=== PATIENT | female | born 1955 | race Caucasian/White ===

== ENCOUNTER 2019-07-03 14:13 | Outpatient (CLI) | payer BC, SELFPAY ==
--- NOTE | 2019-07-03 15:16 | XR_ITS ---
WS: [id number] HIP WITH PELVIS LEFT TECHNIQUE: 3 views of the left hip with pelvis CLINICAL INFORMATION: HIP PAIN,LEFT COMPARISON: None. FINDINGS: Mild degenerative arthritis left hip with joint space narrowing. Normal femoral neck. Normal pubic ra mi. No acute fractures. XR/XR hip LT 2-3V wo/w pel* [id number] IMPRESSION: Mild degenerative arthritis left hip. No acute fractures.
== END 2019-07-03 14:14 | disposition home or self-care (01) ==
PROVIDERS: PCP Family Medicine; Visit Provider Family Medicine
DX: M16.12 Unilateral primary osteoarthritis, left hip (principal); M25.552 Pain in left hip
CPT/HCPCS: 73502

== ENCOUNTER 2021-05-23 13:34 | Outpatient (CLI) | payer BC, SELFPAY ==
--- NOTE | 2021-05-23 14:02 | XR_ITS ---
WS: [id number] ABDOMEN KUB CLINICAL INFORMATION: Left lower quadrant abdominal pain COMPARISON: None. FINDINGS: Scattered air in normal caliber small and large bowel. No air-fluid levels. No evidence of high-grade obstruction. Lumbar curve convex left. Moderate spondylitic changes. 5 nonrib-bearing lumbar vertebral bodies. Nor mal pubic rami. XR/XR KUB [id number] Impression: Normal. No free air.
== END 2021-05-23 13:35 | disposition home or self-care (01) ==
PROVIDERS: PCP Family Medicine; Visit Provider Clinical Nurse Specialist Adult Health
DX: R10.32 Left lower quadrant pain (principal)
CPT/HCPCS: 74018

== ENCOUNTER → 2022-01-12 11:28 | Outpatient (BNVA) | payer MEDICARE, SELFPAY | PROVIDERS: PCP Family Medicine; Visit Provider Family Medicine | DX: Z00.00 Encounter for general adult medical examination without abnormal findings (principal); I10 Essential (primary) hypertension; E55.9 Vitamin D deficiency, unspecified | CPT/HCPCS: 80053; 80061; 82652 ==

== ENCOUNTER 2023-07-12 13:17 | Outpatient (CLI) | payer MEDICARE, SELFPAY ==
--- NOTE | 2023-07-12 13:23 | XR_ITS ---
WS: [id number] DEXA (DUAL ENERGY X-RAY ABSORPTIOMETRY) Bone mineral density was performed using a [employer] machine. HISTORY: POSTMENOPAUSAL COMPARISON: None available. Lumbar spine BMD (L1-L4): 1.129 g/cm2 T score: -0.4 Z score: 0.2 Total hip BMD: Left: 0.961 g/cm2. T score: -0.4 Z score: 0.2 Right: 0.999 g/cm2. T score: -0.1 Z score: 0.5 10 year probability of a major osteoporotic fracture is 15.1%. IMPRESSION: NORMAL BONE MINERAL DENSITY based upon the WHO classification for females.
== END 2023-07-12 13:18 | disposition home or self-care (01) ==
PROVIDERS: PCP Electrodiagnostic Medicine; Visit Provider Electrodiagnostic Medicine
DX: Z78.0 Asymptomatic menopausal state (principal)
CPT/HCPCS: 77080